=== PATIENT | female | born 1970 | race Two or more races ===

== ENCOUNTER 2016-03-30 09:19 | Day surgery (SDC) | payer MEDICAID ==
[2016-03-30] MEDS ORDERED: MIDAZOLAM 2 MG/2 ML VIAL ONE (10:15)
[2016-03-30] MEDS ORDERED: PROPOFOL 200 MG/20 ML VIAL ONE (10:15)
[2016-03-30] MEDS ORDERED: fentaNYL 100 MCG/2 ML INJ ONE (10:16)
--- NOTE | 2016-03-30 11:31 | GPN ---
[f rep st] PROCEDURE NOTE PREPROCEDURE DIAGNOSIS: Rectal bleeding. POSTPROCEDURE DIAGNOSES: 1. Anal fissure. 2. Constipation. PROCEDURE: Flexible sigmoidoscopy. MEDICATIONS: Monitored anesthesia care. INDICATIONS: Carlie Acosta is a 45-year-old female with recent vaginal surgery and constipation, who has developed rectal bleeding. She has no family history of colon cancer or colon polyps. She is here today for colonoscopy. The risks and benefits of the procedure were discussed with the patient and consent obtained. Risks include, but not limited to, bleeding, perforation, risks related to sedation. The patient is ASA class 2. DESCRIPTION OF PROCEDURE: The pediatric colonoscope was advanced into the rectum. Immediately upon advancing the scope into the rectum, there is a large amount of hard stool in the rectal vault. Retroflexion was performed and she does have a 6 mm anal fissure, which was seen in retroflexion. I attempted to advance the scope beyond the hard stool, but was unable to secondary to a large amount of hard stool throughout the sigmoid colon as well. The scope was advanced to the distal sigmoid colon before terminating the procedure. IMPRESSION: 1. Constipation, hard stool throughout the colon. 2. Anal fissure visualized on retroflexion and withdrawal of scope through the anal canal. RECOMMENDATIONS: 1. I recommend avoiding constipation. I would add Benefiber 2 scoops orally daily. In addition, she should take MiraLAX 17 g orally daily initially, and this can be switched to p.r.n. if she has good response. 2. Recommend treatment with topical diltiazem 2%, apply 1 gram rectally 3 times a day for 4 weeks. If she continues to have symptoms after 4 weeks, she will continue this for a total of 8 weeks' treatment course. 3. Follow up in our GI clinic in 4 weeks to discuss response to treatment. 4. Recommend colonoscopy at the age of 50 unless rectal bleeding continues after treatment for her anal fissure, in which case, she would need a repeat colonoscopy for evaluation of ongoing rectal bleeding. She would need a 2 day prep for a repeat colonoscopy. 5. Thank you for allowing me to participate in the care of your patient. Please do not hesitate to call with questions. /[id number]/MODL MTDD
== END 2016-03-30 11:30 | disposition home or self-care (01) ==
LOC: FSGY 09:19
PROVIDERS: ATTEND Internal Medicine Gastroenterology
PROC: 0DJD8ZZ Inspection of Lower Intestinal Tract, Via Natural or Artificial Opening Endoscopic (ICD-10-PCS; principal; 2016-03-30 10:00)
DX: K60.2 Anal fissure, unspecified (principal); K59.00 Constipation, unspecified; K92.1 Melena; R10.84 Generalized abdominal pain; G89.29 Other chronic pain; Z98.890 Other specified postprocedural states
CPT/HCPCS: J2250; J2704; J3010